=== PATIENT | female | born 1975 | race Caucasian/White ===

== ENCOUNTER 2023-03-04 14:11 | Emergency (ER) | payer MEDICAID, SELFPAY ==
[2023-03-04 14:23] VITALS: BP 126/87; PULSE 116; RESP 20; TEMP 38.4; O2SAT 96; BMI 32.0
[2023-03-04 14:31] VITALS: RESP 20; O2SAT 97
--- NOTE | 2023-03-04 14:40 | ED_ITS ---
HPI - General Adult General Chief complaint: Fever Stated complaint: headache, fever Time Seen by Provider: 03/04/23 14:14 History of Present Illness HPI narrative: This 47-year-old female comes in reporting 2 or 3 days of generalized malaise and arrives here with a fever and temperature of 101.2? F. She reports an occasional cough and states that she has a severe headache on the left side of her head. She does not report any shortness of breath. She arrives here with oximetry at 96% on room air. Related Data Home Medications Medication Instructions Recorded Confirmed dextroamphetamine-amphetamine 30 30 mg PO BID 03/04/23 03/04/23 mg tablet (Adderall) xanex 03/04/23 Previous Rx's Medication Instructions Recorded acetaminophen 300 mg-codeine 30 mg 1 tab PO Q6H PRN pain #20 tabs 03/04/23 tablet oseltamivir 75 mg capsule (Tamiflu) 75 mg PO BID 5 days #10 caps 03/04/23 Allergies Allergy/AdvReac Type Severity Reaction Status Date / Time codeine Allergy Verified 03/04/23 14:26 Review of Systems Status of ROS: Reports: 10 or more systems reviewed and unremarkable except as noted in History and below Narrative: Constitutional: No weight gain or loss. She arrives with a fever. Eyes: No discharge. No vision changes. HENT: No congestion, no sore throat, no ear pain. Cardiovascular: No chest pain, no palpitations. Respiratory: No shortness of breath, no wheezes. She reports a cough. Gastrointestinal: No abdominal pain, no vomiting, no diarrhea. Genitourinary: No dysuria, no hematuria. Musculoskeletal: Normal range of motion. Skin: No rashes, no pruritis. Neurological: No dizziness, weakness, sensory change, speech change. Endo/Heme/Allergies: No bruising or bleeding. No polydipsia. Pysch: no suicidality, no anxiety, no insomnia. All other systems reviewed and are negative. Exam Narrative: Exam Narrative: Constitutional: Well-developed, well-nourished, no acute distress. HEENT: Normocephalic, atraumatic. Neck: Normal range of motion. Nontender. Supple. Heart: Regular. No murmurs. Tachycardia. Intact distal pulses. Lungs: Clear to auscultation. No chest discomfort. No wheezes, rhonchi, or rales. Abdomen: Normal bowel sounds. Nontender. No rebound tenderness. Genitalia: Deferred. Back: No midline tenderness. Normal range of motion. Extremities: Normal range of motion. No injury. Skin: Intact. No rash. Warm. No erythema or pallor. Neurologic: No altered sensation. No weakness. Alert and oriented. Psychiatric: No suicidality. No anxiety or depression. No insomnia. Nursing notes and vitals signs are reviewed. Const: Vital Signs, click to edit/add: Vital Signs - 24 hr 03/04/23 14:23 03/04/23 14:31 Temperature 101.2 F H Pulse Rate [Right Pulse Oximeter] 116 H Respiratory Rate 20 20 Blood Pressure [Ri ght Upper Arm] 126/87 Pulse Oximetry 96 97 Oxygen Delivery Me thod Room Air Room Air Course Vital Signs Vital signs: Initial Vital Signs Temperature 101.2 F H 03/04/23 14:23 Temperature Source Temporal Artery Scan 03/04/23 14:23 Pulse Rate 116 H 03/04/23 14:23 Respiratory Rate 20 03/04/23 14:23 Blood Pressure 126/87 03/04/23 14:23 Blood Pressure Mean 100 03/04/23 14:23 Blood Pressure Position Sitting 03/04/23 14:23 Pulse Oximetry 96 03/04/23 14:23 Oxygen Delivery Method Room Air 03/04/23 14:23 Vital Signs Temperature 101.2 F H 03/04/23 14:23 Pulse Rate 116 H 03/04/23 14:23 Respiratory Rate 20 03/04/23 14:23 Blood Pressure 126/87 03/04/23 14:23 Pulse Oximetry 96 03/04/23 14:23 Oxygen Delivery Method Room Air 03/04/23 14:23 Temperature 101.2 F H 03/04/23 14:23 Pulse Rate 116 H 03/04/23 14:23 Respiratory Rate 20 03/04/23 14:31 Blood Pressure 126/87 03/04/23 14:23 Pulse Oximetry 97 03/04/23 14:31 Oxygen Delivery Method Room Air 03/04/23 14:31 Medications Administered Medications: Generic Name Dose Route Start Last Admin Trade Name Freq PRN Reason Stop Dose Admin Sodium Chloride 1,000 mls @ 1,000 mls/hr 03/04/23 14:45 03/04/23 15:16 0.9 % Sodium Chloride 1000 Ml IV 03/04/23 15:44 1,000 mls/hr .Q1H KIM Administration Discontinued Medications Generic Name Dose Route Start Last Admin Trade Name Pierce PRN Reason Stop Dose Admin Ketorolac Tromethamine 30 mg 03/04/23 14:38 03/04/23 15:16 Ketorolac 30 Mg/Ml Inj IVP 03/04/23 14:39 30 mg ONCE ONE Administration Medical Decision Making MDM Narrative Medical decision making narrative: This 47-year-old female comes in with generalized malaise and does arrive with a fever and some tachycardia. She does have an occasional cough. Nasal pharyngeal swab returns positive for influenza A. The patient did receive IV fluids and 30 mg of Toradol. She also received dexamethasone 10 mg intravenously. She is right on the outside edge of being a candidate for Tamiflu. This is prescribed for her along with some Tylenol 3. She does list codeine as an allergy but states that she just gets itchy with this medicine. She still prefers to receive a prescription for Tylenol 3 and will use and histamine for treating adverse effects. Lab Data Labs: Lab Results 03/04/23 03/04/23 Range/Units 14:31 14:52 WBC 4.07 L (4.50-11.00) K/uL RBC 4.77 (4.00-5.20) m/uL Hgb 13.7 (12.0-16.0) gm/dL Hct 41.7 (33.0-51.0) % MCV 87 (80-100) fL MCH 29 (26-34) pg MCHC 33 (32-36) gm/dL RDW Coeff of Bertram 13.7 (11.5-15.5) % Plt Count 210 (140-440) K/uL Neut % (Auto) 72.1 H (42.0-72.0) % Lymph % (Auto) 14.3 L (20-44) % [place] % (Auto) 12.0 H (0.0-11.0) % Eos % (Auto) 0.7 (0.0-7.0) % Baso % (Auto) 0.2 (0.0-3.0) % Neut # (Auto) 2.90 (1.7-7.0) K/uL Lymph # (Auto) 0.60 L (0.90-2.90) K/uL [place] # (Auto) 0.50 (0.00-0.90) K/UL Eos # (Auto) 0.00 (0.00-0.50) K/uL Baso # (Auto) 0.00 (0.00-0.30) K/uL Abs Immat Gran (auto) 0.00 (0.00-0.30) K/uL Imm/Tot Granulo (auto) 0.7 % Sodium 133 L (135-149) mmol/L Potassium 4.1 (3.6-5.1) mmol/L Chloride 99 (96-114) mmol/L Carbon Dioxide 22 (20-32) mmol/L Anion Gap 12 (7-15) mEq/L BUN 8 (5-24) mg/dL Creatinine 0.6 (0.5-1.5) mg/dL Estimated Creat Clear 92.66 Estimated GFR 112 ml/min Glucose 102 (60-115) mg/dL Lactate 1.6 (0.5-1.9) mmol/L Calcium 8.2 L (8.4-10.6) mg/dL SARS-CoV-2 (PCR) Negative SARS-CoV-2 (Negative) Influenza Type A (PCR) POSITIVE PCR FLU A A (Negative) Influenza Type B (PCR) Negative PCR FLU B (Negative) RSV (PCR) Negative PCR RSV (Negative) Discharge Plan Discharge Clinical Impression: Influenza A Patient Disposition: Home, Self-Care Condition: Stable Additional Instructions: Take medication as prescribed and needed. Use [id number] medicines also as needed and directed. Follow up with MD return if worsening. Prescriptions: New acetaminophen-codeine 300-30 mg tablet 1 tab PO Q6H PRN (Reason: pain) Qty: 20 0RF oseltamivir [Tamiflu] 75 mg capsule 75 mg PO BID 5 Days Qty: 10 0RF No Action xanex dextroamphetamine-amphetamine [Adderall] 30 mg tablet 30 mg PO BID Rx Instructions: administer doses at least 4-6 hours apart Follow Up/Referrals: Provider,Not a Local [Primary Care Provider] - Stand Alone Forms: [email or web address] Info Instructions
[2023-03-04 14:57] LABS: Lactate* 1.6 mmol/L (0.5-1.9)
[2023-03-04 14:59] LABS: Basophils Percent Auto 0.2 % (0.0-3.0); Eosinophils Percent Auto 0.7 % (0.0-7.0); Hematocrit 41.7 % (33.0-51.0); Hemoglobin* 13.7 gm/dL (12.0-16.0); Immature Granulocytes Pct Auto 0.7 %; Lymphocytes Percent Auto 14.3 % (20-44); Mean Corpuscular HGB Conc 33 gm/dL (32-36); Mean Corpuscular Hemoglobin 29 pg (26-34); Mean Corpuscular Volume 87 fL (80-100); Neutrophils Percent Auto 72.1 % (42.0-72.0); RDW Coefficient of Variation % 13.7 % (11.5-15.5); Red Blood Count 4.77 m/uL (4.00-5.20); White Blood Count* 4.07 K/uL (4.50-11.00)
[2023-03-04 15:16] LABS: Platelet Count* 210 K/uL (140-440)
[2023-03-04] MEDS: 0.9 % SODIUM CHLORIDE 1000 ml 1,000 ML IV (15:16)
[2023-03-04] MEDS: KETOROLAC 30 MG/ML inj IVP (15:16)
[2023-03-04 15:17] LABS: Slide Review Reflex No
[2023-03-04 15:20] LABS: PCR FLU A POSITIVE PCR FLU A (Negative); PCR FLU B Negative PCR FLU B (Negative); PCR RSV Negative PCR RSV (Negative)
[2023-03-04 15:27] LABS: SARS PCR* Negative SARS-CoV-2 (Negative)
[2023-03-04 15:28] LABS: Chloride* 99 mmol/L (96-114); Sodium* 133 mmol/L (135-149)
[2023-03-04 15:31] LABS: Blood Urea Nitrogen* 8 mg/dL (5-24); Calcium* 8.2 mg/dL (8.4-10.6); Carbon Dioxide* 22 mmol/L (20-32); Creatinine* 0.6 mg/dL (0.5-1.5); Est. Creatinine Clearance* 92.66; Estimated Glomerular Filt Rate 112 ml/min; Glucose* 102 mg/dL (60-115)
[2023-03-04 15:32] LABS: Anion Gap 12 mEq/L (7-15); Potassium* 4.1 mmol/L (3.6-5.1)
--- NOTE | 2023-03-04 16:09 | ED.NURSE ---
c/o eyes hurt and informed Dr of this. continues to moan in the room when walking in.
[2023-03-04] MEDS: dexAMETHasone 4 MG/ML VIAL 10 MG IV (16:35)
== END 2023-03-04 17:17 | disposition home or self-care (01) ==
PROVIDERS: Emergency Provider Emergency Medicine Emergency Medical Services
DX: J09.X2 Influenza due to identified novel influenza A virus with other respiratory manifestations (principal)
CPT/HCPCS: 36415; 80048; 83605; 85025; 87040; 87631; 96374; 99283; 99284; J1100; J1885; J7030

== ENCOUNTER 2023-09-15 18:51 | Emergency (ER) | payer MEDICAID, SELFPAY ==
[2023-09-15 18:55] VITALS: BP 126/79; PULSE 96; RESP 18; TEMP 36.2; O2SAT 97; BMI 32.9
--- NOTE | 2023-09-15 19:13 | ED_ITS ---
HPI - General Adult General Chief complaint: Dental/Oral/Mouth Injury/Pain Stated complaint: tooth pain Time Seen by Provider: 09/15/23 18:52 Source: patient Mode of arrival: ambulatory Limitations: no limitations History of Present Illness HPI narrative: 48-year-old female coming in today complaining of dental pain for the last 2 days. She denies any fevers or chills. No nausea or vomiting. Patient was unable to get into the dentist. She complains of facial swelling. Patient has had significant dental work, has most of her teeth removed with partial dentures in place. Related Data Home Medications ?Medication ?Instructions ?Recorded ?Confirmed dextroamphetamine-amphetamine 30 30 mg PO BID 03/04/23 03/04/23 mg tablet (Adderall) xanex 03/04/23 Previous Rx's ?Medication ?Instructions ?Recorded acetaminophen 300 mg-codeine 30 mg 1 tab PO Q6H PRN pain #20 tabs 03/04/23 tablet oseltamivir 75 mg capsule (Tamiflu) 75 mg PO BID 5 days #10 caps 03/04/23 Allergies Allergy/AdvReac Type Severity Reaction Status Date / Time codeine Allergy Verified 03/04/23 14:26 Review of Systems Status of ROS: Reports: 6 or more systems reviewed and unremarkable except as noted in History and below PFSH PFS Social History Smoking Status: Current every day smoker What tobacco products do you use: cigarettes Do you use any of these nicotine containing products: None Second hand tobacco smoke exposure: No How often do you have a drink containing alcohol: never How often do you have six or more drinks on one occasion: Never AUDIT-C Alcohol total score: 0 Non-prescribed substance use: marijuana (any form) service: No Exam Narrative: Exam Narrative: Well-nourished well-developed patient in no acute distress. Alert and oriented. Answers questions appropriately. Mood and affect are appropriate. Thoughts are goal oriented and rational. No tangential or magical thinking noted. Patient speaks in full sentences without needing to catch her breath. Voice is not muffled or congested. HEENT: Patient has mild swelling at the angle of the jaw on the left lower side. There is no erythema present. Patient removes her partial dentures and she has most of her teeth missing. She has 3 teeth on the lower left jaw the 1 causing problems is either her 1st or 2nd premolar, again difficult to tell which 1 as most of the teeth are missing. At the base of the tooth there is erythema and debris, the gums are not swollen or boggy, I do not feel any area of abscess formation. Const: Vital Signs, click to edit/add: Vital Signs - 24 hr 09/15/23 18:55 Temperature 97.1 F L Pulse Rate [Pulse Oximeter] 96 Respiratory Rate 18 Blood Pressure [Le ft Upper Arm] 126/79 Pulse Oximetry 97 Oxygen Delivery Me thod Room Air Course Vital Signs Vital signs: Initial Vital Signs Temperature 97.1 F L 09/15/23 18:55 Temperature Source Temporal Artery Scan 09/15/23 18:55 Pulse Rate 96 09/15/23 18:55 Pulse Rhythm Regular 09/15/23 18:55 Respiratory Rate 18 09/15/23 18:55 Blood Pressure 126/79 09/15/23 18:55 Blood Pressure Mean 94 09/15/23 18:55 Blood Pressure Position Sitting 09/15/23 18:55 Pulse Oximetry 97 09/15/23 18:55 Oxygen Delivery Method Room Air 09/15/23 18:55 Vital Signs Temperature 97.1 F L 09/15/23 18:55 Pulse Rate 96 09/15/23 18:55 Respiratory Rate 18 09/15/23 18:55 Blood Pressure 126/79 09/15/23 18:55 Pulse Oximetry 97 09/15/23 18:55 Oxygen Delivery Method Room Air 09/15/23 18:55 Temperature 97.1 F L 09/15/23 18:55 Pulse Rate 96 09/15/23 18:55 Respiratory Rate 18 09/15/23 18:55 Blood Pressure 126/79 09/15/23 18:55 Pulse Oximetry 97 09/15/23 18:55 Oxygen Delivery Method Room Air 09/15/23 18:55 Medical Decision Making MDM Narrative Medical decision making narrative: 48-year-old female dental infection. Will treat with Augmentin Toradol. She is encouraged to follow up with a dentist as soon as possible. We discussed the possibility of abscess formation and reasons to return to the ER. Discharge Plan Discharge Clinical Impression: Dental infection Patient Disposition: Home, Self-Care Condition: Stable Additional Instructions: Take all antibiotics as prescribed. Take pain medications as needed/as prescribed. Follow-up with a dentist as soon as possible. Augmentin and Toradol sent to [facility]. Prescriptions: No Action xanex dextroamphetamine-amphetamine [Adderall] 30 mg tablet 30 mg PO BID Rx Instructions: administer doses at least 4-6 hours apart acetaminophen-codeine 300-30 mg tablet 1 tab PO Q6H PRN (Reason: pain) Qty: 20 0RF oseltamivir [Tamiflu] 75 mg capsule 75 mg PO BID 5 Days Qty: 10 0RF Follow Up/Referrals: Provider,Not a Local [Primary Care Provider] - Stand Alone Forms: [employer] Info Instructions
== END 2023-09-15 19:20 | disposition home or self-care (01) ==
LOC: ED 19:19
PROVIDERS: Emergency Provider Family Medicine
DX: K08.89 Other specified disorders of teeth and supporting structures (principal)
CPT/HCPCS: 99282; 99283